=== PATIENT | male | born 1935 | race Caucasian/White ===

== ENCOUNTER 2020-09-28 22:50 | Inpatient (IN) | payer MEDICARE, BC ==
[2020-09-28] MEDS ORDERED: Boostrix 0.5 ML (Tdap) VIAL ONE (23:48)
[2020-09-28 23:49] LABS: #Eosinphils 0.3 10x3/uL (0.0-0.5); #Monocytes 0.8 10x3/uL (0.0-1.1); #Neutrophils 4.5 10x3/uL (1.5-8.4); %Basophils 0.3 % (0.0-2.0); %Eosinophils 3.8 % (0.0-6.0); %Lymphocytes 14.5 % (18.0-47.0); %Monocytes 12.4 % (0.0-10.0); %Neutrophils 68.8 % (40.0-75.0); Hemoglobin 14.5 g/dL (13.5-17.5); Mean Corpuscular HGB CONC 32.8 g/dL (32.0-36.0); Mean Corpuscular Volume 88.4 fl (81.2-95.1); Mean Platelet Volume 8.7 fl (7.4-10.4); Platelet Count 139 10x3/uL (150-450); RBC Distribution Width 15.4 % (11.5-14.5); White Blood Cell (WBC) Count 6.6 10x3/uL (3.5-10.5)
[2020-09-28 23:59] LABS: ALT (SGPT) 26 U/L (8-55); AST (SGOT) 27 U/L (5-34); Albumin 4.2 g/dL (3.4-4.8); Alkaline Phosphatase 118 U/L (40-110); Anion Gap 14 mmol/L (10-20); BUN (Urea Nitrogen) 19 mg/dL (8.4-25.7); Bilirubin, Total 0.5 mg/dL (0.2-1.2); Calc. Creatinine Clearance 0 mL/min (70-130); Calcium 9.5 mg/dL (7.8-10.44); Carbon Dioxide 27 mmol/L (23-31); Chloride 100 mmol/L (98-107); Globulin 3.3 g/dL (2.4-3.5); Glucose 149 mg/dL (83-110); Potassium 4.3 mmol/L (3.5-5.1); Protein, Total 7.5 g/dL (5.8-8.1); Sodium 137 mmol/L (136-145)
[2020-09-29 00:26] LABS: INR-International Normal Ratio 3.1; PTT 51.7 sec (22.0-33.0); Prothrombin Time 30.9 sec (9.5-12.1)
[2020-09-29] MEDS ORDERED: Zolpidem Tartrate 5 MG TAB PO PRN (03:52)
[2020-09-29] MEDS ORDERED: Calcium Carbonate 500 MG ChewTAB PO PRN (03:52)
[2020-09-29] MEDS ORDERED: HYDROcodone/Acetaminophen 5/325 mg Tablet PO PRN (03:52)
[2020-09-29] MEDS ORDERED: Acetaminophen 325 MG TAB PO PRN (03:52)
[2020-09-29] MEDS ORDERED: Guaifenesin DM 100-10/5 ML UDCUP PO PRN (03:52)
[2020-09-29] MEDS ORDERED: Sodium Chloride 0.9% 500 ML IV SCH ×2 (04:00→06:45)
[2020-09-29 06:28] VITALS: BMI 23.5
[2020-09-29] MEDS: Levothyroxine Sodium 125 MCG TAB PO SCH (06:39)
[2020-09-29] MEDS ORDERED: FLU VACC QS2020-21(65YR UP)/PF 240 MCG/0.7 ML SYRINGE IM ONE (06:45)
[2020-09-29] MEDS ORDERED: Ubidecarenone [Co Q-10] 10 MG Capsule PO SCH (09:00)
[2020-09-29] MEDS ORDERED: LEVOMEFOLATE PO SCH (09:00)
[2020-09-29] MEDS ORDERED: B12 PO SCH (09:00)
[2020-09-29] MEDS ORDERED: ALGAL OIL PO SCH (09:00)
[2020-09-29] MEDS ORDERED: B6 PO SCH (09:00)
[2020-09-29] MEDS: Multivit, Therapeutic 1 TAB PO SCH (09:46)
[2020-09-29] MEDS: Cholecalciferol (Vitamin D3) 400 UNITS TAB PO SCH (09:46)
[2020-09-29] MEDS: Finasteride 5 MG TAB PO SCH (09:46)
[2020-09-29] MEDS: Ascorbic Acid 500 mg Chewable Tablet PO SCH (09:46)
[2020-09-29] MEDS: Amlodipine 5 MG TAB PO SCH (09:46)
[2020-09-29] MEDS: Rosuvastatin 10 MG TAB PO SCH (09:46)
[2020-09-29] MEDS: Lisinopril 20 MG TAB PO SCH (09:46)
[2020-09-29] MEDS: Carvedilol 6.25 MG TAB PO SCH (09:47)
[2020-09-29] MEDS: Vit A,C & E/Lutein/Minerals Tablet PO SCH ×2 (09:47→20:45)
[2020-09-29] MEDS: Potassium Chloride 10 MEQ TAB PO SCH (09:47)
[2020-09-29] MEDS: Senokot S 8.6-50 MG TAB PO PRN (09:47)
[2020-09-29] MEDS: Magnesium Oxide 250 MG TAB PO SCH (10:03)
[2020-09-29 13:42] LABS: SARS-CoV-2 PCR by NAA Not Detected (NotDetected)
[2020-09-29] MEDS ORDERED: Warfarin Sodium 2.5 MG TAB PO SCH (17:00)
[2020-09-30] MEDS: Levothyroxine Sodium 125 MCG TAB PO SCH (05:25)
[2020-09-30] MEDS: Senokot S 8.6-50 MG TAB PO PRN (05:27)
[2020-09-30 05:58] LABS: Anion Gap 10 mmol/L (10-20); BUN (Urea Nitrogen) 14 mg/dL (8.4-25.7); Calc. Creatinine Clearance 68 mL/min (70-130); Calcium 8.8 mg/dL (7.8-10.44); Carbon Dioxide 27 mmol/L (23-31); Chloride 104 mmol/L (98-107); Glucose 126 mg/dL (83-110); Potassium 4.2 mmol/L (3.5-5.1); Sodium 137 mmol/L (136-145)
[2020-09-30 06:04] LABS: INR-International Normal Ratio 3.1; Prothrombin Time 30.9 sec (9.5-12.1)
[2020-09-30] MEDS: Rosuvastatin 10 MG TAB PO SCH (09:14)
[2020-09-30] MEDS: Multivit, Therapeutic 1 TAB PO SCH (09:14)
[2020-09-30] MEDS: Aspirin 81 mg Enteric Coated Tablet PO SCH (09:14)
[2020-09-30] MEDS: Lisinopril 20 MG TAB PO SCH (09:14)
[2020-09-30] MEDS: Potassium Chloride 10 MEQ TAB PO SCH (09:14)
[2020-09-30] MEDS: Magnesium Oxide 250 MG TAB PO SCH (09:15)
[2020-09-30] MEDS: Finasteride 5 MG TAB PO SCH (09:15)
[2020-09-30] MEDS: Ascorbic Acid 500 mg Chewable Tablet PO SCH (09:15)
[2020-09-30] MEDS: Vit A,C & E/Lutein/Minerals Tablet PO SCH ×2 (09:15→22:14)
[2020-09-30] MEDS: Furosemide 40 MG TAB PO SCH (09:15)
[2020-09-30] MEDS: Cholecalciferol (Vitamin D3) 400 UNITS TAB PO SCH (09:15)
[2020-09-30] MEDS: Amlodipine 5 MG TAB PO SCH (09:42)
[2020-09-30] MEDS: Carvedilol 6.25 MG TAB PO SCH (09:42)
[2020-10-01] MEDS: Levothyroxine Sodium 125 MCG TAB PO SCH (06:01)
[2020-10-01 06:43] LABS: INR-International Normal Ratio 2.4; Prothrombin Time 23.9 sec (9.5-12.1)
[2020-10-01] MEDS: Potassium Chloride 10 MEQ TAB PO SCH (08:07)
[2020-10-01] MEDS: Finasteride 5 MG TAB PO SCH (08:07)
[2020-10-01] MEDS: Rosuvastatin 10 MG TAB PO SCH (08:08)
[2020-10-01] MEDS: Multivit, Therapeutic 1 TAB PO SCH (08:08)
[2020-10-01] MEDS: Carvedilol 6.25 MG TAB PO SCH (08:08)
[2020-10-01] MEDS: Magnesium Oxide 250 MG TAB PO SCH (08:08)
[2020-10-01] MEDS: Ascorbic Acid 500 mg Chewable Tablet PO SCH (08:08)
[2020-10-01] MEDS: Senokot S 8.6-50 MG TAB PO PRN (08:09)
[2020-10-01] MEDS: Cholecalciferol (Vitamin D3) 400 UNITS TAB PO SCH (08:09)
[2020-10-01] MEDS: Furosemide 40 MG TAB PO SCH (08:09)
[2020-10-01] MEDS: Sotalol HCl 80 MG TAB PO SCH ×2 (08:09→21:43)
[2020-10-01] MEDS: Lisinopril 20 MG TAB PO SCH (08:09)
[2020-10-01] MEDS: Vit A,C & E/Lutein/Minerals Tablet PO SCH ×2 (08:10→21:44)
[2020-10-01] MEDS: Amlodipine 5 MG TAB PO SCH (08:10)
[2020-10-01] MEDS ORDERED: Polyethylene Glycol 3350 17 GM Packet PO PRN (09:13)
[2020-10-01] MEDS ORDERED: Phytonadione 10 MG/ML AMP PO SCH (12:45)
[2020-10-01] MEDS ORDERED: Communication Order-Pharmacy FS SCH (13:15)
[2020-10-02] MEDS: Potassium Chloride 10 MEQ TAB PO SCH (06:30)
[2020-10-02] MEDS: Sotalol HCl 80 MG TAB PO SCH ×2 (06:30→21:50)
[2020-10-02] MEDS: Levothyroxine Sodium 125 MCG TAB PO SCH (06:30)
[2020-10-02] MEDS: Multivit, Therapeutic 1 TAB PO SCH (06:30)
[2020-10-02] MEDS: Rosuvastatin 10 MG TAB PO SCH (06:30)
[2020-10-02] MEDS: Lisinopril 20 MG TAB PO SCH (06:30)
[2020-10-02] MEDS: Amlodipine 5 MG TAB PO SCH (06:46)
[2020-10-02] MEDS: Sodium Chloride 0.9% 1,000 ML IV SCH (06:46)
[2020-10-02] MEDS: Vit A,C & E/Lutein/Minerals Tablet PO SCH ×2 (06:47→21:11)
[2020-10-02] MEDS: Cholecalciferol (Vitamin D3) 400 UNITS TAB PO SCH (06:47)
[2020-10-02] MEDS: Magnesium Oxide 250 MG TAB PO SCH (06:47)
[2020-10-02] MEDS: Finasteride 5 MG TAB PO SCH (06:47)
[2020-10-02] MEDS: Carvedilol 6.25 MG TAB PO SCH (06:47)
[2020-10-02] MEDS: Ascorbic Acid 500 mg Chewable Tablet PO SCH (06:47)
[2020-10-02 06:48] LABS: INR-International Normal Ratio 1.2; Prothrombin Time 12.6 sec (9.5-12.1)
[2020-10-02] MEDS ORDERED: Heparin 10,000 UNITS/ 10 ML VIAL ONE (07:37)
[2020-10-02] MEDS ORDERED: Lidocaine 1% (PF) 30 ML VIAL ONE (07:37)
[2020-10-02] MEDS ORDERED: Nitroglycerin 50 MG/250 ML BOT 0 ML ONE (07:37)
[2020-10-02] MEDS ORDERED: Sodium Chloride 0.9% 1,000 ML ONE (07:38)
[2020-10-02] MEDS ORDERED: Adenosine 6 MG/2 ML VIAL ONE (07:38)
[2020-10-02] MEDS ORDERED: Fentanyl 250 MCG/5 ML VIAL ONE (10:39)
[2020-10-02] MEDS ORDERED: Midazolam HCl 2 mg/2 ml Vial ONE (10:40)
[2020-10-02] MEDS ORDERED: Clopidogrel Bisulfate 300 MG TAB ONE (12:08)
[2020-10-02] MEDS: Furosemide 40 MG TAB PO SCH (15:36)
[2020-10-02] MEDS: Aspirin 81 mg Enteric Coated Tablet PO SCH (15:36)
[2020-10-02] MEDS ORDERED: Warfarin Sodium 5 MG TAB PO SCH (17:00)
[2020-10-03 06:15] LABS: #Eosinphils 0.2 10x3/uL (0.0-0.5); #Monocytes 0.7 10x3/uL (0.0-1.1); #Neutrophils 4.4 10x3/uL (1.5-8.4); %Basophils 0.5 % (0.0-2.0); %Eosinophils 3.9 % (0.0-6.0); %Lymphocytes 10.6 % (18.0-47.0); %Neutrophils 73.8 % (40.0-75.0); Hemoglobin 13.1 g/dL (13.5-17.5); Mean Corpuscular HGB CONC 31.6 g/dL (32.0-36.0); Mean Corpuscular Hemoglobin 28.5 pg (27.0-33.0); Mean Corpuscular Volume 90.2 fl (81.2-95.1); Platelet Count 131 10x3/uL (150-450); RBC Distribution Width 15.5 % (11.5-14.5); White Blood Cell (WBC) Count 5.9 10x3/uL (3.5-10.5)
[2020-10-03 06:39] LABS: INR-International Normal Ratio 1.1; Prothrombin Time 11.7 sec (9.5-12.1)
[2020-10-03 06:43] LABS: ALT (SGPT) 34 U/L (8-55); AST (SGOT) 28 U/L (5-34); Albumin 3.4 g/dL (3.4-4.8); Alkaline Phosphatase 101 U/L (40-110); Anion Gap 13 mmol/L (10-20); BUN (Urea Nitrogen) 15 mg/dL (8.4-25.7); Bilirubin, Total 0.9 mg/dL (0.2-1.2); Calc. Creatinine Clearance 66 mL/min (70-130); Calcium 8.9 mg/dL (7.8-10.44); Carbon Dioxide 27 mmol/L (23-31); Cardiac Risk 3.8 (Less than 4.5); Chloride 104 mmol/L (98-107); Cholesterol 113 mg/dl (< 200 Desired); Globulin 2.8 g/dL (2.4-3.5); Glucose 93 mg/dL (83-110); HDL Cholesterol 30 mg/dL (>60 Neg Risk); LDL Cholesterol, Calculated 68 mg/dL; Potassium 4.4 mmol/L (3.5-5.1); Protein, Total 6.2 g/dL (5.8-8.1); Sodium 140 mmol/L (136-145); Triglycerides 75 mg/dL (Less than 150)
[2020-10-03 06:44] LABS: Phosphorus 3.4 mg/dL (2.3-4.7)
[2020-10-03] MEDS: Levothyroxine Sodium 125 MCG TAB PO SCH (07:40)
[2020-10-03] MEDS: Sodium Chloride 0.9% 1,000 ML IV SCH (08:51)
[2020-10-03] MEDS ORDERED: Clopidogrel Bisulfate 75 MG TAB PO SCH (09:00)
[2020-10-03 10:04] LABS: INR-International Normal Ratio 1.1; Prothrombin Time 11.6 sec (9.5-12.1)
[2020-10-03] MEDS: Rosuvastatin 10 MG TAB PO SCH (10:40)
[2020-10-03] MEDS: Cholecalciferol (Vitamin D3) 400 UNITS TAB PO SCH (10:40)
[2020-10-03] MEDS: Furosemide 40 MG TAB PO SCH (10:40)
[2020-10-03] MEDS: Ascorbic Acid 500 mg Chewable Tablet PO SCH (10:41)
[2020-10-03] MEDS: Potassium Chloride 10 MEQ TAB PO SCH (10:41)
[2020-10-03] MEDS: Finasteride 5 MG TAB PO SCH (10:41)
[2020-10-03] MEDS: Multivit, Therapeutic 1 TAB PO SCH (10:41)
[2020-10-03] MEDS: Carvedilol 6.25 MG TAB PO SCH (10:43)
[2020-10-03] MEDS: Amlodipine 5 MG TAB PO SCH (10:45)
[2020-10-03] MEDS: Magnesium Oxide 250 MG TAB PO SCH (10:46)
[2020-10-03] MEDS: Vit A,C & E/Lutein/Minerals Tablet PO SCH (10:46)
[2020-10-03] MEDS: Lisinopril 20 MG TAB PO SCH (10:46)
[2020-10-03] MEDS: Sotalol HCl 80 MG TAB PO SCH (10:46)
[2020-10-03 13:06] VITALS: BP 136/68; TEMP 99.1
[2020-10-03] MEDS ORDERED: Warfarin Sodium 2.5 MG TAB PO SCH (17:00)
== END 2020-10-03 16:02 | disposition home or self-care (01) | DRG 247 ==
LOC: CSHERS 22:50 → INTOOBSV 09-29 03:41 → CSHERHOLD 09-29 03:41 → CSHTELE 09-29 06:35 → OBSVTOIN 09-30 09:40
PROVIDERS: ADMIT Student in an Organized Health Care Education/Training Program; ATTEND Internal Medicine
PROC: 4A023N7 Measurement of Cardiac Sampling and Pressure, Left Heart, Percutaneous Approach (ICD-10-PCS; principal; 2020-10-02)
PROC: 027034Z Dilation of Coronary Artery, One Artery with Drug-eluting Intraluminal Device, Percutaneous Approach (ICD-10-PCS; 2020-10-02)
PROC: B2111ZZ Fluoroscopy of Multiple Coronary Arteries using Low Osmolar Contrast (ICD-10-PCS; 2020-10-02)
PROC: B2161ZZ Fluoroscopy of Right and Left Heart using Low Osmolar Contrast (ICD-10-PCS; 2020-10-02)
PROC: B240ZZ3 Ultrasonography of Single Coronary Artery, Intravascular (ICD-10-PCS; 2020-10-02)
DX: I47.2 Ventricular tachycardia (principal); Z20.822 Contact with and (suspected) exposure to COVID-19; E03.9 Hypothyroidism, unspecified; E11.22 Type 2 diabetes mellitus with diabetic chronic kidney disease; I12.9 Hypertensive chronic kidney disease with stage 1 through stage 4 chronic kidney disease, or unspecified chronic kidney disease; N18.2 Chronic kidney disease, stage 2 (mild); I25.10 Atherosclerotic heart disease of native coronary artery without angina pectoris; E86.0 Dehydration; E11.65 Type 2 diabetes mellitus with hyperglycemia; E78.2 Mixed hyperlipidemia; I51.89 Other ill-defined heart diseases; I49.5 Sick sinus syndrome; W19.XXXA Unspecified fall, initial encounter; S20.211A Contusion of right front wall of thorax, initial encounter; M19.90 Unspecified osteoarthritis, unspecified site; K59.00 Constipation, unspecified; Z98.42 Cataract extraction status, left eye; Z95.0 Presence of cardiac pacemaker; Z88.2 Allergy status to sulfonamides; Z79.01 Long term (current) use of anticoagulants; Z95.1 Presence of aortocoronary bypass graft; Z95.2 Presence of prosthetic heart valve; Z79.82 Long term (current) use of aspirin; Z79.890 Hormone replacement therapy; Z79.899 Other long term (current) drug therapy; Z98.41 Cataract extraction status, right eye; S00.01XA Abrasion of scalp, initial encounter; I44.7 Left bundle-branch block, unspecified
CPT/HCPCS: 36415; 70450; 71045; 72125; 75605; 80048; 80053; 80061; 83735; 84100; 84439; 84443; 84484; 85025; 85347; 85610; 85730; 87635; 90471; 90715; 92937; 92978; 93005; 93010; 93306; 93459; 99152; 99153; C1753; C1757; C1874; C1887; C9604; G0378; J0153; J1644; J2001; J2250; J3010; J3430; J7030; J7050; U0003; U0005

== ENCOUNTER 2021-11-03 10:42 | Outpatient (CLI) | payer MEDICARE, BC | END 2021-11-03 10:43 | disposition home or self-care (01) | LOC: CSHRAD 10:42 | PROVIDERS: ATTEND Family Medicine | DX: R06.00 Dyspnea, unspecified (principal); J90 Pleural effusion, not elsewhere classified | CPT/HCPCS: 71046 ==

== ENCOUNTER 2022-02-17 12:13 | Outpatient (CLI) | payer MEDICARE, BC | END 2022-02-17 12:14 | disposition home or self-care (01) | LOC: CSHRAD 12:13 | PROVIDERS: ATTEND Family Medicine | DX: R05.9 Cough, unspecified (principal); J90 Pleural effusion, not elsewhere classified; R09.89 Other specified symptoms and signs involving the circulatory and respiratory systems | CPT/HCPCS: 71046 ==

== ENCOUNTER 2022-05-14 02:04 | Inpatient (IN) | payer MEDICARE, BC ==
[2022-05-14 03:23] LABS: #Eosinphils 0.1 10x3/uL (0.0-0.5); #Monocytes 0.8 10x3/uL (0.0-1.1); #Neutrophils 10.8 10x3/uL (1.5-8.4); %Basophils 0.3 % (0.0-2.0); %Eosinophils 0.8 % (0.0-6.0); %Lymphocytes 8.1 % (18.0-47.0); %Monocytes 6.6 % (0.0-10.0); %Neutrophils 83.8 % (40.0-75.0); Hemoglobin 10.7 g/dL (13.5-17.5); Mean Corpuscular HGB CONC 32.5 g/dL (32.0-36.0); Mean Corpuscular Hemoglobin 30.4 pg (27.0-33.0); Mean Corpuscular Volume 93.5 fl (81.2-95.1); Mean Platelet Volume 9.3 fl (7.4-10.4); Platelet Count 171 10x3/uL (150-450); RBC Distribution Width 16.6 % (11.5-14.5); Red Blood Cell (RBC) Count 3.52 10x6/uL (4.32-5.72); White Blood Cell (WBC) Count 12.8 10x3/uL (3.5-10.5)
[2022-05-14 03:36] LABS: ALT (SGPT) 20 U/L (8-55); AST (SGOT) 26 U/L (5-34); Albumin 3.9 g/dL (3.4-4.8); Alkaline Phosphatase 117 U/L (40-110); Anion Gap 18 mmol/L (10-20); BUN (Urea Nitrogen) 35 mg/dL (8.4-25.7); Bilirubin, Total 1.7 mg/dL (0.2-1.2); Calc. Creatinine Clearance 0 mL/min (70-130); Carbon Dioxide 21 mmol/L (23-31); Chloride 102 mmol/L (98-107); Estimated GFR 38; Globulin 2.6 g/dL (2.4-3.5); Glucose 157 mg/dL (83-110); Potassium 4.9 mmol/L (3.5-5.1); Protein, Total 6.5 g/dL (5.8-8.1); Sodium 136 mmol/L (136-145)
[2022-05-14 03:56] LABS: CKMB 2.6 ng/mL (0-6.6)
[2022-05-14] MEDS ORDERED: cefTRIAXone\\ROCEPHIN 2 GM VIAL ONE (04:40)
[2022-05-14] MEDS ORDERED: Furosemide 40 MG/4 ML VIAL ONE (05:31)
[2022-05-14] MEDS ORDERED: Bisacodyl 5 MG TAB PO PRN (05:44)
[2022-05-14] MEDS ORDERED: HYDROcodone/Acetaminophen 5/325 mg Tablet PO PRN (05:44)
[2022-05-14] MEDS ORDERED: Acetaminophen 325 MG TAB PO PRN (05:44)
[2022-05-14] MEDS ORDERED: Guaifenesin DM 100-10/5 ML UDCUP PO PRN (05:44)
[2022-05-14] MEDS ORDERED: Senokot S 8.6-50 MG TAB PO PRN (05:44)
[2022-05-14] MEDS ORDERED: Calcium Carbonate 500 MG ChewTAB PO PRN (05:44)
[2022-05-14 06:21] LABS: PTT 43.4 sec (22.0-33.0); Prothrombin Time 40.7 sec (9.5-12.1)
[2022-05-14 06:48] LABS: SARS-CoV-2 NAA Rapid Test Not Detected (NotDetected)
[2022-05-14 08:12] LABS: Legionella Urinary Ag Negative (Negative); Strep pneumo Urine Ag NEGATIVE (NEGATIVE)
[2022-05-14] MEDS ORDERED: guaiFENesin ER 600 MG TAB PO SCH (09:00)
[2022-05-14] MEDS ORDERED: [UNRECOGNIZED DRUG - OTHER] PO SCH (09:00)
[2022-05-14] MEDS ORDERED: [UNRECOGNIZED DRUG - OTHER] PO SCH (09:00)
[2022-05-14] MEDS ORDERED: Amlodipine 5 MG TAB PO SCH (09:00)
[2022-05-14] MEDS ORDERED: [UNRECOGNIZED DRUG - OTHER] PO SCH (09:00)
[2022-05-14] MEDS ORDERED: B6 PO SCH (09:00)
[2022-05-14] MEDS ORDERED: B12 PO SCH (09:00)
[2022-05-14] MEDS ORDERED: LEVOMEFOLATE PO SCH (09:00)
[2022-05-14] MEDS ORDERED: METHYLCELLULOSE PO SCH (09:00)
[2022-05-14] MEDS ORDERED: ALGAL OIL PO SCH (09:00)
[2022-05-14 09:01] LABS: CKMB 3.3 ng/mL (0-6.6)
[2022-05-14 09:29] LABS: Magnesium 2.5 mg/dL (1.6-2.6)
[2022-05-14] MEDS: Saccharomyces boulardii 250 MG CAP PO SCH (09:33)
[2022-05-14] MEDS: Cholecalciferol (Vitamin D3) 400 UNITS TAB PO SCH (09:33)
[2022-05-14] MEDS: Multivit, Therapeutic 1 TAB PO SCH (09:33)
[2022-05-14] MEDS: Benzonatate 100 MG CAP PO SCH ×3 (09:33→20:11)
[2022-05-14] MEDS: Magnesium Oxide 250 MG TAB PO SCH (09:34)
[2022-05-14] MEDS: Sotalol HCl 80 MG TAB PO SCH ×2 (09:34→20:10)
[2022-05-14] MEDS: Ascorbic Acid 500 mg Chewable Tablet PO SCH (09:34)
[2022-05-14] MEDS: Finasteride 5 MG TAB PO SCH (09:35)
[2022-05-14] MEDS: Levothyroxine Sodium 125 MCG TAB PO SCH (09:39)
[2022-05-14] MEDS: Cefepime 1 GM in Sodium Chloride 0.9% 100 ML IVPB SCH ×2 (09:40→20:11)
[2022-05-14] MEDS: Azithromycin 500 MG in Sodium Chloride 0.9% 250 ML 250 ML IVPB SCH (09:40)
[2022-05-14] MEDS: Furosemide 40 MG/4 ML VIAL SLOW IVP SCH (14:52)
[2022-05-14 15:08] LABS: CKMB 3.1 ng/mL (0-6.6)
[2022-05-14] MEDS ORDERED: Nitroglycerin 2% Ointment 1 INCH/1 GM Packet TOP SCH (20:00)
[2022-05-14] MEDS ORDERED: Furosemide 20 MG/2 ML VIAL SLOW IVP SCH ×2 (20:00→22:15)
[2022-05-14] MEDS: guaiFENesin ER 600 MG TAB PO SCH (20:11)
[2022-05-14] MEDS: Rosuvastatin 10 MG TAB PO SCH (20:11)
[2022-05-14] MEDS ORDERED: Warfarin Sodium 5 MG TAB PO SCH (21:00)
[2022-05-14] MEDS ORDERED: Pharmacy to Dose ABX/VANCOMYCIN IVPB PRN (22:12)
[2022-05-14] MEDS ORDERED: VANCOMYCIN 1.25 GM/250 ML BAG 1.25 GM in Premix Bag 1 BAG IVPB SCH (23:00)
[2022-05-14] MEDS ORDERED: Metolazone 5 MG TAB PO SCH (23:00)
[2022-05-14] MEDS ORDERED: Furosemide 100 MG/10 ML VIAL SLOW IVP SCH (23:00)
[2022-05-14 23:38] LABS: Anion Gap 19 mmol/L (10-20); BUN (Urea Nitrogen) 48 mg/dL (8.4-25.7); Calc. Creatinine Clearance 22 mL/min (70-130); Calcium 9.1 mg/dL (7.8-10.44); Carbon Dioxide 18 mmol/L (23-31); Chloride 102 mmol/L (98-107); Estimated GFR 26; Glucose 222 mg/dL (83-110); Potassium 5.3 mmol/L (3.5-5.1); Sodium 134 mmol/L (136-145)
[2022-05-14 23:39] LABS: CKMB 3.1 ng/mL (0-6.6)
[2022-05-15 05:05] LABS: #Monocytes 0.9 10x3/uL (0.0-1.1); #Neutrophils 9.4 10x3/uL (1.5-8.4); %Basophils 0.1 % (0.0-2.0); %Lymphocytes 8.6 % (18.0-47.0); %Monocytes 7.8 % (0.0-10.0); %Neutrophils 83.1 % (40.0-75.0); Hemoglobin 10.6 g/dL (13.5-17.5); Mean Corpuscular HGB CONC 32.6 g/dL (32.0-36.0); Mean Corpuscular Hemoglobin 30.5 pg (27.0-33.0); Mean Corpuscular Volume 93.4 fl (81.2-95.1); Mean Platelet Volume 10.3 fl (7.4-10.4); Platelet Count 121 10x3/uL (150-450); RBC Distribution Width 16.4 % (11.5-14.5); Red Blood Cell (RBC) Count 3.48 10x6/uL (4.32-5.72); White Blood Cell (WBC) Count 11.3 10x3/uL (3.5-10.5)
[2022-05-15 05:14] LABS: ALT (SGPT) 33 U/L (8-55); AST (SGOT) 44 U/L (5-34); Albumin 3.5 g/dL (3.4-4.8); Alkaline Phosphatase 101 U/L (40-110); Anion Gap 20 mmol/L (10-20); BUN (Urea Nitrogen) 53 mg/dL (8.4-25.7); Bilirubin, Total 1.7 mg/dL (0.2-1.2); Calc. Creatinine Clearance 24 mL/min (70-130); Carbon Dioxide 17 mmol/L (23-31); Chloride 104 mmol/L (98-107); Estimated GFR 28; Globulin 2.9 g/dL (2.4-3.5); Glucose 139 mg/dL (83-110); Magnesium 2.6 mg/dL (1.6-2.6); Potassium 4.5 mmol/L (3.5-5.1); Protein, Total 6.4 g/dL (5.8-8.1); Sodium 136 mmol/L (136-145)
[2022-05-15] MEDS: Furosemide 40 MG/4 ML VIAL SLOW IVP SCH ×2 (05:15→14:03)
[2022-05-15 05:16] LABS: PTT 53.7 sec (22.0-33.0); Prothrombin Time 72.6 sec (9.5-12.1)
[2022-05-15 05:29] LABS: INR-International Normal Ratio 7.5
[2022-05-15 05:34] LABS: CKMB 3.4 ng/mL (0-6.6)
[2022-05-15] MEDS ORDERED: Phytonadione 10 MG/ML AMP PO SCH (06:00)
[2022-05-15] MEDS ORDERED: Phytonadione 10 MG/ML AMP SC SCH (06:30)
[2022-05-15] MEDS: Levothyroxine Sodium 125 MCG TAB PO SCH (08:38)
[2022-05-15] MEDS: Saccharomyces boulardii 250 MG CAP PO SCH (08:38)
[2022-05-15] MEDS: Cholecalciferol (Vitamin D3) 400 UNITS TAB PO SCH (08:38)
[2022-05-15] MEDS: Ascorbic Acid 500 mg Chewable Tablet PO SCH (08:38)
[2022-05-15] MEDS: Finasteride 5 MG TAB PO SCH (08:40)
[2022-05-15] MEDS: Cefepime 1 GM in Sodium Chloride 0.9% 100 ML IVPB SCH (08:40)
[2022-05-15] MEDS: guaiFENesin ER 600 MG TAB PO SCH ×2 (08:40→21:32)
[2022-05-15] MEDS: Multivit, Therapeutic 1 TAB PO SCH (08:40)
[2022-05-15] MEDS: Benzonatate 100 MG CAP PO SCH ×3 (08:40→21:32)
[2022-05-15] MEDS: Azithromycin 500 MG in Sodium Chloride 0.9% 250 ML 250 ML IVPB SCH (08:41)
[2022-05-15] MEDS: Clopidogrel Bisulfate 75 MG TAB PO SCH (08:43)
[2022-05-15] MEDS: Magnesium Oxide 250 MG TAB PO SCH (09:10)
[2022-05-15] MEDS: Sotalol HCl 80 MG TAB PO SCH ×2 (09:10→21:31)
[2022-05-15] MEDS: Rosuvastatin 10 MG TAB PO SCH (21:31)
[2022-05-15] MEDS: Vancomycin HCl 750 MG in Sodium Chloride 0.9% 250 ML 250 ML IVPB SCH (23:47)
[2022-05-16 04:21] LABS: #Monocytes 1.6 10x3/uL (0.0-1.1); #Neutrophils 12.3 10x3/uL (1.5-8.4); %Basophils 0.2 % (0.0-2.0); %Eosinophils 0.2 % (0.0-6.0); %Lymphocytes 8.1 % (18.0-47.0); %Monocytes 10.3 % (0.0-10.0); %Neutrophils 80.8 % (40.0-75.0); Hemoglobin 10.5 g/dL (13.5-17.5); Mean Corpuscular HGB CONC 32.8 g/dL (32.0-36.0); Mean Corpuscular Hemoglobin 30.5 pg (27.0-33.0); Mean Platelet Volume 10.7 fl (7.4-10.4); Platelet Count 159 10x3/uL (150-450); RBC Distribution Width 16.8 % (11.5-14.5); Red Blood Cell (RBC) Count 3.44 10x6/uL (4.32-5.72); White Blood Cell (WBC) Count 15.2 10x3/uL (3.5-10.5)
[2022-05-16 04:41] LABS: PTT 50.1 sec (22.0-33.0); Prothrombin Time 45.5 sec (9.5-12.1)
[2022-05-16 04:54] LABS: CRP (Inflammatory) 8.51 mg/dL (= or < 0.5); Magnesium 2.8 mg/dL (1.6-2.6)
[2022-05-16 05:01] LABS: INR-International Normal Ratio 4.6
[2022-05-16] MEDS: Furosemide 40 MG/4 ML VIAL SLOW IVP SCH ×2 (05:47→13:46)
[2022-05-16] MEDS: Cefepime 1 GM in Sodium Chloride 0.9% 100 ML IVPB SCH (08:25)
[2022-05-16] MEDS: Azithromycin 500 MG in Sodium Chloride 0.9% 250 ML 250 ML IVPB SCH (08:25)
[2022-05-16] MEDS: Levothyroxine Sodium 125 MCG TAB PO SCH (08:26)
[2022-05-16] MEDS: Ascorbic Acid 500 mg Chewable Tablet PO SCH (08:26)
[2022-05-16] MEDS: Multivit, Therapeutic 1 TAB PO SCH (08:26)
[2022-05-16] MEDS: Saccharomyces boulardii 250 MG CAP PO SCH (08:26)
[2022-05-16] MEDS: guaiFENesin ER 600 MG TAB PO SCH ×2 (08:26→20:41)
[2022-05-16] MEDS: Cholecalciferol (Vitamin D3) 400 UNITS TAB PO SCH (08:26)
[2022-05-16] MEDS: Finasteride 5 MG TAB PO SCH (08:26)
[2022-05-16] MEDS: Benzonatate 100 MG CAP PO SCH (08:26)
[2022-05-16] MEDS: Clopidogrel Bisulfate 75 MG TAB PO SCH (08:27)
[2022-05-16] MEDS: Sotalol HCl 80 MG TAB PO SCH ×2 (08:35→20:41)
[2022-05-16 10:16] LABS: Anion Gap 17 mmol/L (10-20); BUN (Urea Nitrogen) 80 mg/dL (8.4-25.7); Calc. Creatinine Clearance 20 mL/min (70-130); Calcium 8.9 mg/dL (7.8-10.44); Carbon Dioxide 18 mmol/L (23-31); Chloride 102 mmol/L (98-107); Estimated GFR 23; Glucose 207 mg/dL (83-110); Potassium 4.6 mmol/L (3.5-5.1); Sodium 132 mmol/L (136-145)
[2022-05-16] MEDS: Magnesium Oxide 250 MG TAB PO SCH (10:37)
[2022-05-16] MEDS: Albumin 25% 25 GM/100 ML BOT IVPB SCH ×2 (18:04→23:47)
[2022-05-16] MEDS: Ondansetron PF 4 MG/2 ML Vial IVP PRN (18:11)
[2022-05-16] MEDS: Rosuvastatin 10 MG TAB PO SCH (20:41)
[2022-05-16 22:18] LABS: Vancomycin, Trough 14.5 ug/mL
[2022-05-16] MEDS: Vancomycin HCl 750 MG in Sodium Chloride 0.9% 250 ML 250 ML IVPB SCH (23:29)
[2022-05-17 05:00] LABS: #Monocytes 1.3 10x3/uL (0.0-1.1); #Neutrophils 8.6 10x3/uL (1.5-8.4); %Basophils 0.2 % (0.0-2.0); %Eosinophils 0.4 % (0.0-6.0); %Lymphocytes 8.5 % (18.0-47.0); %Monocytes 11.7 % (0.0-10.0); %Neutrophils 78.7 % (40.0-75.0); Hemoglobin 9.9 g/dL (13.5-17.5); Mean Corpuscular HGB CONC 33.3 g/dL (32.0-36.0); Mean Corpuscular Hemoglobin 30.9 pg (27.0-33.0); Mean Corpuscular Volume 92.8 fl (81.2-95.1); Mean Platelet Volume 10.7 fl (7.4-10.4); Platelet Count 149 10x3/uL (150-450); RBC Distribution Width 17.1 % (11.5-14.5); White Blood Cell (WBC) Count 10.9 10x3/uL (3.5-10.5)
[2022-05-17 05:26] LABS: Anion Gap 18 mmol/L (10-20); BUN (Urea Nitrogen) 98 mg/dL (8.4-25.7); Calc. Creatinine Clearance 16 mL/min (70-130); Calcium 8.9 mg/dL (7.8-10.44); Carbon Dioxide 19 mmol/L (23-31); Chloride 103 mmol/L (98-107); Estimated GFR 17; Glucose 156 mg/dL (83-110); INR-International Normal Ratio 2.3; Potassium 5.4 mmol/L (3.5-5.1); Prothrombin Time 23.5 sec (9.5-12.1); Sodium 135 mmol/L (136-145)
[2022-05-17] MEDS ORDERED: Vancomycin 1 GM in Premix Bag 1 BAG IVPB PRN (05:45)
[2022-05-17] MEDS: Albumin 25% 25 GM/100 ML BOT IVPB SCH (06:27)
[2022-05-17] MEDS: Furosemide 40 MG/4 ML VIAL SLOW IVP SCH (06:27)
[2022-05-17] MEDS: Ondansetron PF 4 MG/2 ML Vial IVP PRN (09:02)
[2022-05-17] MEDS: guaiFENesin ER 600 MG TAB PO SCH (09:02)
[2022-05-17] MEDS: Ascorbic Acid 500 mg Chewable Tablet PO SCH (09:02)
[2022-05-17] MEDS: Sotalol HCl 80 MG TAB PO SCH (09:02)
[2022-05-17] MEDS: Saccharomyces boulardii 250 MG CAP PO SCH (09:03)
[2022-05-17] MEDS: Multivit, Therapeutic 1 TAB PO SCH (09:03)
[2022-05-17] MEDS: Cholecalciferol (Vitamin D3) 400 UNITS TAB PO SCH (09:03)
[2022-05-17] MEDS: Magnesium Oxide 250 MG TAB PO SCH (09:03)
[2022-05-17] MEDS: Finasteride 5 MG TAB PO SCH (09:03)
[2022-05-17] MEDS: Levothyroxine Sodium 125 MCG TAB PO SCH (09:03)
[2022-05-17] MEDS: Azithromycin 500 MG in Sodium Chloride 0.9% 250 ML 250 ML IVPB SCH (09:16)
[2022-05-17] MEDS: Cefepime 1 GM in Sodium Chloride 0.9% 100 ML IVPB SCH (09:16)
[2022-05-17 12:02] LABS: Actual Bicarbonate (HCO3a) 13.7 mEq/L (22-28); Base Excess (BEa) -11.2 mEq/L (-2.0 to +3.0); CO2 Tension 27.6 mmHg (35.0-45.0); Calcium, Ionized (arterial) 1.48 mmol/L (1.12-1.30); Carboxyhemoglobin (COHb) 0.1 gm% (0.0-3.0); Hemoglobin (Hb) 8.5 g/dL (14.0-18.0); O2 Tension (PaO2), arterial 360.7 mmHg (> 60.0); Potassium - ABG Lab 4.9 mmol/L (3.70-5.30); Puncture Site LFA; pH, Arterial 7.32 (7.35-7.45)
[2022-05-17] MEDS ORDERED: Norepinephrine 8 MG/0.9% NS 250 ML IVPB ONE (16:50)
[2022-05-17] MEDS ORDERED: Warfarin Sodium 2.5 MG TAB PO SCH (17:00)
[2022-05-18 02:39] VITALS: BP 134/60; TEMP 98.1
[2022-05-18 02:44] VITALS: BMI 26.4
== END 2022-05-17 15:30 | disposition expired ==
LOC: SUATTDRO 02:04 → CSHERS 02:04 → CSHTELE 05:44 → CSHIMCU 22:44 → CSHTELE 05-16 12:43
PROVIDERS: ADMIT Internal Medicine; ATTEND Family Medicine
PROC: 5A09357 Assistance with Respiratory Ventilation, Less than 24 Consecutive Hours, Continuous Positive Airway Pressure (ICD-10-PCS; 2022-05-14)
PROC: 5A12012 Performance of Cardiac Output, Single, Manual (ICD-10-PCS; principal; 2022-05-17)
DX: I13.0 Hypertensive heart and chronic kidney disease with heart failure and stage 1 through stage 4 chronic kidney disease, or unspecified chronic kidney disease (principal); I21.A1 Myocardial infarction type 2; I50.43 Acute on chronic combined systolic (congestive) and diastolic (congestive) heart failure; J15.6 Pneumonia due to other Gram-negative bacteria; J96.01 Acute respiratory failure with hypoxia; N17.9 Acute kidney failure, unspecified; R04.2 Hemoptysis; E87.1 Hypo-osmolality and hyponatremia; Z20.822 Contact with and (suspected) exposure to COVID-19; N18.30 Chronic kidney disease, stage 3 unspecified; E03.9 Hypothyroidism, unspecified; E78.5 Hyperlipidemia, unspecified; E78.2 Mixed hyperlipidemia; I25.118 Atherosclerotic heart disease of native coronary artery with other forms of angina pectoris; E11.22 Type 2 diabetes mellitus with diabetic chronic kidney disease; I49.5 Sick sinus syndrome; Z95.1 Presence of aortocoronary bypass graft; Z79.01 Long term (current) use of anticoagulants; Z95.2 Presence of prosthetic heart valve; Z95.0 Presence of cardiac pacemaker; Z79.899 Other long term (current) drug therapy; Z79.890 Hormone replacement therapy; Z79.02 Long term (current) use of antithrombotics/antiplatelets; Z88.2 Allergy status to sulfonamides
CPT/HCPCS: 36415; 36416; 71045; 71250; 76770; 80048; 80053; 80202; 82553; 82805; 83605; 83735; 83880; 84145; 84484; 85025; 85610; 85730; 86140; 87040; 87449; 87804; 87899; 93005; 93010; 93306; 94640; 94660; 94760; 96374; 96375; J0456; J0692; J0696; J1940; J2405; J3370; J3430; J3490; J7050; J7620; P9047; U0002